=== PATIENT | male | born 1995 | race Caucasian/White ===

== ENCOUNTER → 2017-03-19 | Outpatient (CLI) | payer OTHER | END | disposition home or self-care (01) | LOC: C.LAB1850 15:41 | PROVIDERS: ATTEND Preventive Medicine Occupational Medicine | DX: Z13.0 Encounter for screening for diseases of the blood and blood-forming organs and certain disorders involving the immune mechanism (principal) ==

== ENCOUNTER → 2017-07-03 | Outpatient (CLI) | payer OTHER ==
--- NOTE | 2017-07-03 13:39 | DIAGNOSTIC IMAGING REPORT ---
L TIBIA/FIBULA 2 VIEWS CLINICAL HISTORY: Left leg pain. COMPARISON: None FINDINGS: No displaced fracture of the left tibia or fibula is noted. There is subtle cortical irregularity with periosteal thickening of the distal medial shaft of the left tibia. No left fibular abnormality is identified. IMPRESSION: Subtle cortical irregularity with periosteal thickening of the distal medial shaft of the left tibia which suggests a stress reaction/developing stress fracture. No discrete fracture line identified. Electronically signed by: Brenden No M.D. 07/03/2017 1:37 PM Dictated Date/Time: 07/03/2017 1:36 PM
== END | disposition home or self-care (01) ==
LOC: C.RDSM 13:17
PROVIDERS: ATTEND Internal Medicine
DX: M79.605 Pain in left leg (principal)